=== PATIENT | male | born 1985 | race African-American/Black ===

== ENCOUNTER 2018-05-24 11:27 | Emergency (ER) | payer SELFPAY ==
[2018-05-24] MEDS ORDERED: Fluorescein Opthalmic Strip ONE (12:06)
[2018-05-24] MEDS ORDERED: Proparacaine 0.5% Opth 15 ML BOT ONE (12:06)
== END 2018-05-24 12:27 | disposition home or self-care (01) ==
LOC: ERS 11:27
DX: H00.011 Hordeolum externum right upper eyelid (principal)
CPT/HCPCS: 99283